=== PATIENT | female | born 1940 | race Caucasian/White ===

== ENCOUNTER 2018-02-02 12:00 | Inpatient (IN) | payer MEDICARE, BC ==
[2018-02-02] MEDS ORDERED: Magnesium Hydroxide 400 MG/5 ML Susp 30 ML Cup PO PRN (15:55)
[2018-02-02] MEDS ORDERED: Calcium Carbonate 500 MG Tab.Chew PO PRN (15:55)
--- NOTE | 2018-02-02 16:07 | PCM.HP ---
H&P History of Present Illness - General Date of Service: 02/02/18 Admit Problem/Dx: Admission Diagnosis/Problem Admission Diagnosis/Problem Arthroscopy of knee joint Source of Information: Patient, Family, Old Records History Limitations: Reports: No Limitations - History of Present Illness Initial Comments - Free Text/Narative: Patient comes today as a assisted admission for PT/OT therapy status post Left Knee replacement. Patient denies pain at this time. Currently has ice machine on Left knee. Symptom Onset Date: 01/29/18 Location: Reports: Lower Extremity, Left Quality: Reports: Ache (with movement) Severity: Mild Improves with: Reports: Cold Therapy, Immobilization Worsens with: Reports: Movement - Related Data Allergies/Adverse Reactions: Allergies Allergy/AdvReac Type Severity Reaction Status Date / Time penicillin Allergy Other Verified 07/25/15 15:42 Home Medications: Home Meds Gabapentin 600 mg PO BID 07/25/15 [History] Gemfibrozil 600 mg PO BIDAC 07/25/15 [History] Lisinopril [Prinivil] 5 mg PO DAILY 07/25/15 [History] Simvastatin 40 mg PO BEDTIME 07/25/15 [History] Acetaminophen [Tylenol Extra Strength] 1,000 mg PO Q6H PRN 02/02/18 [History] Aspirin [Ecotrin] 325 mg PO BID 02/02/18 [History] Hydrocodone/Acetaminophen [Hydrocodon-Acetaminophen 5-325] 1 each PO Q4HR PRN [History] Levofloxacin 500 mg PO [id number] 02/02/18 [History] Pantoprazole Sodium 40 mg PO [id number] 02/02/18 [History] Past Medical History HEENT History: Reports: Cataract Cardiovascular History: Reports: High Cholesterol, Hypertension Gastrointestinal History: Reports: GI Bleed 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 Musculoskeletal History: Reports: Arthritis, Back Pain, Chronic, Neck Pain, Chronic, Osteoporosis Hematologic History: Reports: Blood Transfusion(s) Other Immunologic History: shingles - Infectious Disease History Infectious Disease History: Reports: Shingles - Past Surgical History HEENT Surgical History: Reports: Cataract Surgery GI Surgical History: Reports: Appendectomy, Colonoscopy Female Surgical History: Reports: Breast Biopsy Musculoskeletal Surgical History: Reports: Arthroscopic Knee, Hip Replacement, Joint Replacement, Knee Replacement, Shoulder Replacement, Shoulder Surgery Social & Family History - Family History HEENT: Reports: Cataract Cardiac: Reports: Hypertension, [place] Respiratory: Reports: Asthma GI: Reports: Bowel Obstruction Musculoskeletal: Reports: Arthritis, Back pain, Chronic, Gout, Osteoarthritis, Osteoporosis Neurological: Reports: TIA Oncologic: Reports: Breast, Ovarian - Tobacco Use Smoking Status *Q: Never Smoker - Living Situation & Occupation Living situation: Reports: Occupation: Retired H&P Review of Systems - Review of Systems: Review Of Systems: See Below General: Reports: No Symptoms HEENT: Reports: No Symptoms Pulmonary: Reports: No Symptoms Cardiovascular: Reports: No Symptoms Gastrointestinal: Reports: No Symptoms Genitourinary: Reports: No Symptoms Musculoskeletal: Reports: Leg Pain (left knee pain with movement; currently denies pain) Skin: Reports: Other (left knee incision) Psychiatric: Reports: No Symptoms Neurological: Reports: No Symptoms Exam - Exam Exam: See Below - Exam General: Alert, Oriented, 4 HEENT: PERRLA, Hearing Intact, Mucosa Moist & [place], Nares Patent, Normal Nasal Septum, Posterior Pharynx Clear, Conjunctiva Clear, EOMI, EACs Clear, TMs Clear Neck: Supple, Trachea Midline, 2 Lungs: Clear to Auscultation, Normal Respiratory Effort Cardiovascular: Regular Rate, Regular Rhythm GI/Abdominal Exam: Normal Bowel Sounds, Soft, Non-Tender, No Organomegaly, No Distention, No Abnormal Bruit, No Mass, Pelvis Stable (Female) Exam: Deferred Rectal (Female) Exam: Deferred Back Exam: Normal Inspection Extremities: Leg Pain (left knee pain with movement; currently denies pain), Limited Range of Motion (left knee ) Skin: Incision (left knee- currently covered with ice machine) Neurological: Cranial Nerves Intact Neuro Extensive - Mental Status: Alert, Oriented x3, Normal Mood/Affect, Normal Cognition, Memory Intact Psychiatric: Alert, Normal Affect, Normal Mood - Problem List (1) Status post total left knee replacement SNOMED Code(s): 4402279805025 ICD Code: Z96.652 - PRESENCE OF LEFT ARTIFICIAL KNEE JOINT Status: Acute Current Visit: Yes Problem Details: Surgery was on 01-29-18. Uneventful Surgery. Patient here for PT/OT therapy. Problem List Initiated/Reviewed/Updated: Yes Orders Last 24hrs: Active Orders 24 hr Category Date Time Status Patient Status [ADT] Routine ADT 02/02/18 15:55 Ordered Ambulate [RC] ASDIRECTED Care 02/02/18 15:55 Ordered Communication Order [RC] ASDIRECTED Care 02/02/18 16:00 Ordered Communication, Vaccine [RC] PER UNIT ROUTINE Care 02/02/18 15:59 Ordered Cooling Measures [Cooling Warming Measures] [RC] Care 02/02/18 15:59 Ordered ASDIRECTED Height and Weight [RC] UPON Care 02/02/18 15:55 Ordered Up With Assistance [RC] ASDIRECTED Care 02/02/18 15:55 Ordered Up to Chair [RC] ASDIRECTED Care 02/02/18 15:55 Ordered Vital Signs [RC] PER UNIT ROUTINE Care 02/02/18 15:55 Ordered OT Evaluation and Treatment [CONS] Routine Cons 02/02/18 16:01 Ordered PT Evaluation and Treatment [CONS] Routine Cons 02/02/18 16:01 Ordered Regular Diet [DIET] Diet 02/02/18 Dinner Ordered Acetaminophen [Tylenol Extra Strength] Med 02/02/18 15:54 Ordered 1,000 mg PO Q6H PRN Acetaminophen/HYDROcodone [[place]ane 325-5 MG] Med 02/02/18 15:54 Ordered 1 each PO Q4HR PRN Aspirin [Ecotrin] Med 02/02/18 18:00 Ordered 325 mg PO BID Calcium Carbonate [Tums] Med 02/02/18 15:55 Ordered 500 mg PO Q4H PRN Gabapentin [Neurontin] Med 02/02/18 18:00 Ordered 600 mg PO BID Gemfibrozil [Lopid] Med 02/02/18 17:30 Ordered 600 mg PO BIDAC Levofloxacin [Levaquin] Med 02/02/18 16:00 Ordered 500 mg PO [id number] Lisinopril [Prinivil] Med 02/03/18 08:00 Ordered 5 mg PO DAILY Magnesium Hydroxide [Milk of Magnesia] Med 02/02/18 15:55 Ordered 30 ml PO BID PRN Pantoprazole [ProTONIX] Med 02/02/18 16:00 Ordered 40 mg PO [id number] Simvastatin [Simvastatin] Med 02/02/18 20:00 Ordered 40 mg PO BEDTIME GM Immunization Reflex [OM.PC] Click To Edit Oth 02/02/18 15:55 Ordered Resuscitation Status Routine Resus Stat 02/02/18 15:55 Ordered Medication Orders Acetaminophen (Tylenol Extra Strength) 1,000 mg PO Q6H PRN PRN Reason: Pain Hydrocodone Bitart/Acetaminophen ([place]ane 325-5 Mg) tab PO Q4HR PRN PRN Reason: Pain Aspirin (Ecotrin) 325 mg PO BID RUSS Calcium Carbonate/Glycine (Tums) 500 mg PO Q4H PRN PRN Reason: Dyspepsia Gabapentin (Neurontin) 600 mg PO BID RUSS Gemfibrozil (Lopid) 600 mg PO BIDAC RUSS Levofloxacin (Levaquin) 500 mg PO [id number] RUSS Lisinopril (Prinivil) 5 mg PO DAILY RUSS Magnesium Hydroxide (Milk Of Magnesia) 30 ml PO BID PRN PRN Reason: Constipation Non-Formulary Medication (Simvastatin [Simvastatin]) 40 mg PO BEDTIME RUSS Pantoprazole Sodium (Protonix) 40 mg PO [id number] RUSS
[2018-02-02] MEDS: Acetaminophen/HYDROcodone 325-5 MG Tab PO PRN ×2 (17:30→23:37)
[2018-02-02] MEDS: Aspirin 325 MG Tab.EC PO SCH (17:32)
[2018-02-02] MEDS: Gabapentin 300 MG Cap PO SCH (17:32)
[2018-02-02] MEDS: Gemfibrozil 600 MG Tab PO SCH (17:32)
[2018-02-02] MEDS: Simvastatin 20 MG Tab PO SCH (20:06)
[2018-02-03] MEDS: Gemfibrozil 600 MG Tab PO SCH ×2 (07:50→17:19)
[2018-02-03] MEDS: Aspirin 325 MG Tab.EC PO SCH ×2 (07:50→17:19)
[2018-02-03] MEDS: Gabapentin 300 MG Cap PO SCH ×2 (07:51→17:20)
[2018-02-03] MEDS: Lisinopril 5 MG Tab PO SCH (07:51)
[2018-02-03] MEDS: Pantoprazole 40 MG Tab.CR PO SCH (07:52)
[2018-02-03] MEDS: Levofloxacin 500 MG Tab PO SCH (08:02)
[2018-02-03] MEDS: Acetaminophen/HYDROcodone 325-5 MG Tab PO PRN ×2 (08:36→13:16)
[2018-02-03] MEDS: Simvastatin 20 MG Tab PO SCH (20:02)
[2018-02-03] MEDS: Acetaminophen 500 MG Tab PO PRN (20:03)
[2018-02-04] MEDS: Acetaminophen 500 MG Tab PO PRN ×3 (02:04→22:22)
[2018-02-04] MEDS: Gemfibrozil 600 MG Tab PO SCH ×2 (08:07→17:55)
[2018-02-04] MEDS: Aspirin 325 MG Tab.EC PO SCH ×2 (08:07→17:56)
[2018-02-04] MEDS: Gabapentin 300 MG Cap PO SCH ×2 (08:08→17:56)
[2018-02-04] MEDS: Levofloxacin 500 MG Tab PO SCH (08:08)
[2018-02-04] MEDS: Pantoprazole 40 MG Tab.CR PO SCH (08:12)
[2018-02-04] MEDS: Lisinopril 5 MG Tab PO SCH (08:13)
[2018-02-04] MEDS: Acetaminophen/HYDROcodone 325-5 MG Tab PO PRN ×2 (08:29→14:30)
[2018-02-04] MEDS: Simvastatin 20 MG Tab PO SCH (19:32)
[2018-02-05] MEDS: Gemfibrozil 600 MG Tab PO SCH ×2 (07:32→17:33)
[2018-02-05] MEDS: Aspirin 325 MG Tab.EC PO SCH ×2 (07:33→17:33)
[2018-02-05] MEDS: Levofloxacin 500 MG Tab PO SCH (07:33)
[2018-02-05] MEDS: Gabapentin 300 MG Cap PO SCH ×2 (07:34→17:33)
[2018-02-05] MEDS: Pantoprazole 40 MG Tab.CR PO SCH (07:34)
[2018-02-05] MEDS: Lisinopril 5 MG Tab PO SCH (07:38)
[2018-02-05] MEDS: Acetaminophen/HYDROcodone 325-5 MG Tab PO PRN (07:39)
[2018-02-05] MEDS: Simvastatin 20 MG Tab PO SCH (19:53)
[2018-02-06] MEDS: Gemfibrozil 600 MG Tab PO SCH ×2 (08:13→17:43)
[2018-02-06] MEDS: Gabapentin 300 MG Cap PO SCH ×2 (08:14→17:44)
[2018-02-06] MEDS: Aspirin 325 MG Tab.EC PO SCH ×2 (08:14→17:43)
[2018-02-06] MEDS: Levofloxacin 500 MG Tab PO SCH (08:14)
[2018-02-06] MEDS: Acetaminophen 500 MG Tab PO PRN ×2 (08:15→19:10)
[2018-02-06] MEDS: Pantoprazole 40 MG Tab.CR PO SCH (08:15)
[2018-02-06] MEDS: Lisinopril 5 MG Tab PO SCH (08:19)
[2018-02-06] MEDS: Simvastatin 20 MG Tab PO SCH (19:09)
[2018-02-07] MEDS: Lisinopril 5 MG Tab PO SCH (08:34)
[2018-02-07] MEDS: Gemfibrozil 600 MG Tab PO SCH ×2 (08:35→17:30)
[2018-02-07] MEDS: Pantoprazole 40 MG Tab.CR PO SCH (08:36)
[2018-02-07] MEDS: Aspirin 325 MG Tab.EC PO SCH ×2 (08:36→17:31)
[2018-02-07] MEDS: Gabapentin 300 MG Cap PO SCH ×2 (08:36→17:31)
[2018-02-07] MEDS: Acetaminophen 500 MG Tab PO PRN ×2 (09:12→22:17)
[2018-02-07] MEDS: Levofloxacin 500 MG Tab PO SCH (09:12)
[2018-02-07] MEDS: Simvastatin 20 MG Tab PO SCH (19:46)
[2018-02-08] MEDS: Aspirin 325 MG Tab.EC PO SCH ×2 (07:51→17:12)
[2018-02-08] MEDS: Gemfibrozil 600 MG Tab PO SCH ×2 (07:51→17:12)
[2018-02-08] MEDS: Gabapentin 300 MG Cap PO SCH ×2 (07:51→17:12)
[2018-02-08] MEDS: Pantoprazole 40 MG Tab.CR PO SCH (08:01)
[2018-02-08] MEDS: Lisinopril 5 MG Tab PO SCH (08:01)
[2018-02-08] MEDS: Acetaminophen/HYDROcodone 325-5 MG Tab PO PRN ×3 (08:02→19:30)
[2018-02-08] MEDS: Acetaminophen 500 MG Tab PO PRN (17:14)
[2018-02-08] MEDS: Simvastatin 20 MG Tab PO SCH (19:29)
[2018-02-09] MEDS: Pantoprazole 40 MG Tab.CR PO SCH (08:01)
[2018-02-09] MEDS: Aspirin 325 MG Tab.EC PO SCH ×2 (08:01→17:11)
[2018-02-09] MEDS: Gabapentin 300 MG Cap PO SCH ×2 (08:02→17:12)
[2018-02-09] MEDS: Gemfibrozil 600 MG Tab PO SCH ×2 (08:03→17:12)
[2018-02-09] MEDS: Lisinopril 5 MG Tab PO SCH (08:05)
[2018-02-09] MEDS: Acetaminophen/HYDROcodone 325-5 MG Tab PO PRN (13:01)
[2018-02-09] MEDS: Simvastatin 20 MG Tab PO SCH (19:57)
[2018-02-09] MEDS: Acetaminophen 500 MG Tab PO PRN (19:58)
[2018-02-10] MEDS: Acetaminophen 500 MG Tab PO PRN (03:31)
[2018-02-10] MEDS: Lisinopril 5 MG Tab PO SCH (07:47)
[2018-02-10] MEDS: Pantoprazole 40 MG Tab.CR PO SCH (07:48)
[2018-02-10] MEDS: Gemfibrozil 600 MG Tab PO SCH (07:48)
[2018-02-10] MEDS: Aspirin 325 MG Tab.EC PO SCH (07:49)
[2018-02-10] MEDS: Gabapentin 300 MG Cap PO SCH (07:49)
[2018-02-10] MEDS: Acetaminophen/HYDROcodone 325-5 MG Tab PO PRN (10:27)
--- NOTE | 2018-02-10 11:24 | PCM.DCSUM1 ---
Discharge Summary - Hospital Course Free Text/Narrative:: Patient is a 77-year-old female who was admitted to swing bed status post left knee replacement she is progressing extremely quickly and has reached the goals of swing bed physical therapy feels that she could go home and will continue with physical therapy as an outpatient at [facility] in [place]. - Discharge Data Discharge Date: 02/10/18 Discharge Disposition: Home, Self-Care 01 Condition: Good - Discharge Diagnosis/Problem(s) (1) Status post total left knee replacement SNOMED Code(s): 2295246493655 ICD Code: Z96.652 - PRESENCE OF LEFT ARTIFICIAL KNEE JOINT Status: Acute Current Visit: Yes Problem Details: Patient has progressed well. Will continue PT therapy as an outpatient. - Patient Summary/Data Consults: Consultations 02/02/18 16:01 OT Evaluation and Treatment [CONS] Routine PT Evaluation and Treatment [CONS] Routine - Patient Instructions Diet: Usual Diet as Tolerated Activity: As Tolerated (Per PT instructions) Driving: Do Not Drive Showering/Bathing: May Shower Wound/Incision Care: Keep Operative Site/Wound Site Clean and Dry Notify Provider of: Fever, Increased Pain, Swelling and Redness, Drainage Other/Special Instructions: Physical Therapy at [facility] in [place] as ordered for Strengthening/ ADLs for status pots left knee replacement. Patient to wear DMITRI hose during the day. - Discharge Plan Prescriptions/Med Rec: Acetaminophen/HYDROcodone [[place] 325-5 MG] 1 tab PO Q4HR PRN #40 tablet PRN Reason: Pain Home Medications: Home Meds Gabapentin 600 mg PO BID 07/25/15 [History] Gemfibrozil 600 mg PO BIDAC 07/25/15 [History] Lisinopril [Prinivil] 5 mg PO DAILY 07/25/15 [History] Simvastatin 40 mg PO BEDTIME 07/25/15 [History] Acetaminophen [Tylenol Extra Strength] 1,000 mg PO Q6H PRN 02/02/18 [History] Aspirin [Ecotrin] 325 mg PO BID 02/02/18 [History] Hydrocodone/Acetaminophen [Hydrocodon-Acetaminophen 5-325] 1 each PO Q4HR PRN [History] Pantoprazole Sodium 40 mg PO [id number] 02/02/18 [History] Acetaminophen/HYDROcodone [[place] 325-5 MG] 1 tab PO Q4HR PRN #40 tablet [Rx] Referrals: Ortho, Follow Up [Other] (Attend Ortho follow up appointment with surgeon as scheduled. ) Clinic, [facility] [Other] (Call with any questions or concerns. ) - Discharge Summary/Plan Comment DC Time >30 min.: No - General Info Date of Service: 02/10/18 Functional Status: Reports: Pain Controlled, Tolerating Diet, Ambulating - Review of Systems General: Reports: No Symptoms HEENT: Reports: No Symptoms Pulmonary: Reports: No Symptoms Cardiovascular: Reports: No Symptoms Gastrointestinal: Reports: No Symptoms Genitourinary: Reports: No Symptoms Musculoskeletal: Reports: No Symptoms Skin: Reports: No Symptoms Neurological: Reports: No Symptoms Psychiatric: Reports: No Symptoms - Patient Data Vitals - Most Recent: Last Vital Signs Temp 98.1 F 02/09/18 08:00 Pulse 84 02/09/18 08:00 Resp 18 02/09/18 08:00 BP 144/66 H 02/09/18 08:05 Pulse Ox 94 L 02/09/18 08:00 Weight - Most Recent: 323 lb 6.69 oz Med Orders - Current: Current Medications Acetaminophen (Tylenol Extra Strength) 1,000 mg PO Q6H PRN PRN Reason: Pain Last Admin: 02/10/18 03:31 Dose: 1,000 mg Hydrocodone Bitart/Acetaminophen ([place] 325-5 Mg) 1 tab PO Q4HR PRN PRN Reason: Pain Last Admin: 02/10/18 10:27 Dose: 1 tab Aspirin (Ecotrin) 325 mg PO BID [facility] Last Admin: 02/10/18 07:49 Dose: 325 mg Calcium Carbonate/Glycine (Tums) 500 mg PO Q4H PRN PRN Reason: Dyspepsia Gabapentin (Neurontin) 600 mg PO BID [facility] Last Admin: 02/10/18 07:49 Dose: 600 mg Gemfibrozil (Lopid) 600 mg PO BIDAC [facility] Last Admin: 02/10/18 07:48 Dose: 600 mg Lisinopril (Prinivil) 5 mg PO DAILY [facility] Last Admin: 02/10/18 07:47 Dose: 5 mg Magnesium Hydroxide (Milk Of Magnesia) 30 ml PO BID PRN PRN Reason: Constipation Pantoprazole Sodium (Protonix) 40 mg PO DAILY [facility] Last Admin: 02/10/18 07:48 Dose: 40 mg Simvastatin (Zocor) 40 mg PO BEDTIME [facility] Last Admin: 02/09/18 19:57 Dose: 40 mg Discontinued Medications Levofloxacin (Levaquin) 500 mg PO DAILY [facility] Stop: 02/07/18 08:01 Last Admin: 02/07/18 09:12 Dose: 500 mg - Exam General: Reports: Alert, Oriented HEENT: Reports: Pupils Equal, Pupils Reactive, EOMI, Mucous Membr. Moist/[place] Neck: Reports: Supple Lungs: Reports: Clear to Auscultation, Normal Respiratory Effort Cardiovascular: Reports: Regular Rate, Regular Rhythm GI/Abdominal Exam: Normal Bowel Sounds, Soft, Non-Tender, No Organomegaly, No Distention, No Abnormal Bruit, No Mass, Pelvis Stable (Female) Exam: Deferred Rectal (Female) Exam: Deferred Back Exam: Reports: Normal Inspection, Full Range of Motion Extremities: Leg Pain (Left leg pain intermittently; Incision open to air- Dry and intact ) Skin: Reports: Warm, Dry, Intact Wound/Incisions: Reports: Healing Well Neurological: Reports: No New Focal Deficit Psy/Mental Status: Reports: Alert, Normal Affect, Normal Mood
[2018-02-10 11:56] VITALS: BP 125/60
== END 2018-02-10 13:15 | disposition home or self-care (01) | DRG 561 ==
LOC: LL.SWG 14:10
PROVIDERS: ADMIT Family Medicine; ATTEND Family Medicine
DX: Z47.1 Aftercare following joint replacement surgery (principal); Z96.652 Presence of left artificial knee joint; M79.605 Pain in left leg; E78.00 Pure hypercholesterolemia, unspecified; I10 Essential (primary) hypertension; M19.90 Unspecified osteoarthritis, unspecified site; G89.29 Other chronic pain; M54.9 Dorsalgia, unspecified; M54.2 Cervicalgia; M81.0 Age-related osteoporosis without current pathological fracture; Z79.82 Long term (current) use of aspirin; Z79.899 Other long term (current) drug therapy; Z88.0 Allergy status to penicillin; Z96.619 Presence of unspecified artificial shoulder joint; Z96.649 Presence of unspecified artificial hip joint
CPT/HCPCS: 97110-GP; 97116-GP; 97161-GP; 97165-GO; 97530-GP; A9270-GY

== ENCOUNTER 2018-03-19 14:37 | Inpatient (IN) | payer MEDICARE, BC ==
[2018-03-19] MEDS: oxyCODONE 5 MG Tab PO PRN (16:27)
--- NOTE | 2018-03-19 17:10 | PCM.HP ---
H&P History of Present Illness - General Date of Service: 03/19/18 Admit Problem/Dx: Patient admitted to Swing Bed for assistance with ADLs as well as PT/Rehab assistance s/p T11 laminectomy for thoracic stenosis with spinal cord compression and myelopathy. Source of Information: Patient, Other (hospital records from recent admission) History Limitations: Reports: No Limitations - History of Present Illness Initial Comments - Free Text/Narative: See above - Related Data Allergies/Adverse Reactions: Allergies Allergy/AdvReac Type Severity Reaction Status Date / Time penicillin Allergy Other Verified 07/25/15 15:42 Home Medications: Home Meds Gabapentin 300 mg PO BID 07/25/15 [History] Gemfibrozil 600 mg PO BIDAC 07/25/15 [History] Lisinopril [Prinivil] 5 mg PO DAILY 07/25/15 [History] Simvastatin 40 mg PO BEDTIME 07/25/15 [History] Aspirin [Ecotrin] 325 mg PO DAILY 02/02/18 [History] Multivit-Min/FA/Lycopene/Lut [Centrum Silver Tablet] 1 tab PO DAILY 03/19/18 [ History] oxyCODONE HCl [Roxicodone] 5 mg PO Q4HR PRN 03/19/18 [History] Past Medical History HEENT History: Reports: Cataract Cardiovascular History: Reports: High Cholesterol, Hypertension Gastrointestinal History: Reports: GI 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 Musculoskeletal History: Reports: Arthritis, Back Pain, Chronic, Neck Pain, Chronic, Osteoporosis Hematologic History: Reports: Blood Transfusion(s) Other Immunologic History: shingles - Infectious Disease History Infectious Disease History: Reports: Chicken Pox, Measles, Mumps, Shingles - Past Surgical History HEENT Surgical History: Reports: Cataract Surgery GI Surgical History: Reports: Appendectomy, Colonoscopy Female Surgical History: Reports: Breast Biopsy Neurological Surgical History: Reports: C-Spine, Laminectomy (T11), Spinal Fusion (L1 through sacrum) Musculoskeletal Surgical History: Reports: Arthroscopic Knee, Hip Replacement, Joint Replacement, Knee Replacement, Shoulder Replacement, Shoulder Surgery Social & Family History - Family History HEENT: Reports: Cataract Cardiac: Reports: Hypertension, [place] Respiratory: Reports: Asthma GI: Reports: Bowel Obstruction Musculoskeletal: Reports: Arthritis, Back pain, Chronic, Gout, Osteoarthritis, Osteoporosis Neurological: Reports: TIA Oncologic: Reports: Breast, Ovarian - Tobacco Use Smoking Status *Q: Former Smoker Years of Tobacco use: 2 Packs/Tins Daily: 1 Used Tobacco, but Quit: Yes Month/Year Tobacco Last Used: 12/1963 Second Hand Smoke Exposure: No - Caffeine Use Caffeine Use: Reports: Coffee, Soda, Tea - Recreational Drug Use Recreational Drug Use: No - Living Situation & Occupation Living situation: Reports: Occupation: Retired H&P Review of Systems - Review of Systems: Review Of Systems: See Below General: Reports: Decreased Appetite (since surgery). Denies: Fever, Chills, Night Sweats, Diaphoresis HEENT: Reports: No Symptoms Pulmonary: Reports: No Symptoms. Denies: Shortness of Breath, Cough Cardiovascular: Reports: No Symptoms. Denies: Chest Pain Gastrointestinal: Reports: No Symptoms Genitourinary: Reports: No Symptoms Musculoskeletal: Reports: Other (has chronic pain from arthritis/previous surgeries. Discomfort in lower thoracic area s/p recent surgery.) Skin: Reports: Wound (healing incision from laminectomy) Psychiatric: Reports: No Symptoms Neurological: Reports: Weakness (mild, bilateral legs, improving since surgery) , Other (did have numbness bilaterally below waistline develop prior to recent surgery. It is still present but improving. ) Hematologic/Lymphatic: Denies: Easy Bleeding Exam - Exam Exam: See Below - Vital Signs Vital Signs: Last Vital Signs Temp 36.6 C 03/19/18 16:06 Pulse 91 03/19/18 16:06 Resp 20 03/19/18 16:06 BP 111/60 03/19/18 16:06 Pulse Ox 98 03/19/18 16:06 Weight: 63.049 kg - Exam General: Alert, Oriented, Cooperative HEENT: Conjunctiva Clear, EACs Clear, EOMI, Hearing Intact, Mucosa Moist & [place] , Nares Patent, Pupils Equal, Pupils Reactive Neck: Supple, Trachea Midline Lungs: Clear to Auscultation, Normal Respiratory Effort Cardiovascular: Regular Rate, Regular Rhythm GI/Abdominal Exam: Normal Bowel Sounds, Soft, Non-Tender, No Distention (Female) Exam: Deferred Rectal (Female) Exam: Deferred Back Exam: Other (Surgical dressing applied over laminectomy incision line. Left in place. No erythema or other changes noted around bandage. ). No: CVA Tenderness (L), CVA Tenderness (R) Extremities: Non-Tender, No Pedal Edema, Normal Capillary Refill, Other (ROM not tested due to recent surgery. Equal strength bilaterally. ) Peripheral Pulses: 2+: Radial (L), Radial (R), Dorsalis Pedis (L), Dorsalis Pedis (R) Skin: Warm, Dry Neurological: Cranial Nerves Intact, Reflexes Equal Bilateral, Strength Equal Bilateral Neuro Extensive - Mental Status: Alert, Oriented x3, Normal Mood/Affect, Normal Cognition, Memory Intact Neuro Extensive - Motor, Sensory, Reflexes: Other (No gross motor/sensory deficits noted. Touch/sensation intact lower extremities but patient says that subjectively things feel not quite 100% in legs (glove/stocking distribution)) Psychiatric: Alert, Normal Affect, Normal Mood - Problem List (1) S/P laminectomy SNOMED Code(s): 978952613, 223372633, 544692803 ICD Code: Z98.890 - OTHER SPECIFIED POSTPROCEDURAL STATES Status: Acute Priority: High Current Visit: Yes Onset Date: ~03/12/18 Problem Details: Patient here for Swing Bed admission due to recent laminectomy in order to receive PT/OT and assistance with ADLs. (2) Degenerative joint disease involving multiple joints SNOMED Code(s): 845234957 ICD Code: M15.9 - POLYOSTEOARTHRITIS, UNSPECIFIED Status: Chronic Priority: Low Current Visit: Yes (3) Hyperlipemia SNOMED Code(s): 78986958 ICD Code: E78.5 - HYPERLIPIDEMIA, UNSPECIFIED Status: Chronic Priority: Low Current Visit: Yes Problem Details: stable by history Qualifiers: Hyperlipidemia type: unspecified Qualified Code(s): E78.5 - Hyperlipidemia , unspecified (4) Hypertension SNOMED Code(s): 81714191 ICD Code: I10 - ESSENTIAL (PRIMARY) HYPERTENSION Status: Chronic Priority : Low Current Visit: Yes Problem Details: stable by history Qualifiers: Hypertension type: unspecified Qualified Code(s): I10 - Essential (primary ) hypertension (5) Spondylosis, thoracic, with myelopathy SNOMED Code(s): 51023253 ICD Code: M47.14 - OTHER SPONDYLOSIS WITH MYELOPATHY, THORACIC REGION Status: Chronic Priority: Medium Current Visit: Yes Problem Details: recent T11 laminectomy (6) Spinal stenosis, thoracic region SNOMED Code(s): 73945619 ICD Code: M48.04 - SPINAL STENOSIS, THORACIC REGION Status: Chronic Priority: Medium Current Visit: Yes Problem Details: recent T11 laminectomy Problem List Initiated/Reviewed/Updated: Yes Orders Last 24hrs: Active Orders 24 hr Category Date Time Status Aspirin [Ecotrin] Med 03/20/18 08:00 Active 325 mg PO DAILY Cholecalciferol (Vitamin D3) [Vitamin D3] Med 03/20/18 08:00 Active 2,000 units PO DAILY Gabapentin [Neurontin] Med 03/19/18 18:00 Pending 600 mg PO BID Gemfibrozil [Lopid] Med 03/19/18 17:30 Active 600 mg PO BIDAC Lisinopril [Prinivil] Med 03/20/18 08:00 Active 5 mg PO DAILY Magnesium Oxide Med 03/20/18 08:00 Active 800 mg PO DAILY Multivitamins [Tab-A-Emmett] Med 03/20/18 08:00 Active 1 tab PO DAILY Simvastatin [Zocor] Med 03/19/18 20:00 Active 40 mg PO BEDTIME Ubidecarenone [Coenzyme Q10] Med 03/20/18 08:00 Active 100 mg PO DAILY oxyCODONE Med 03/19/18 16:00 Active 5 mg PO Q4H PRN Medication Orders Aspirin (Ecotrin) 325 mg PO DAILY RUSS Cholecalciferol (Vitamin D3) 2,000 units PO DAILY RUSS Coenzyme Q10 (Coenzyme Q10) 100 mg PO DAILY RUSS Gabapentin (Neurontin) 600 mg PO BID RUSS Gemfibrozil (Lopid) 600 mg PO BIDAC RUSS Lisinopril (Prinivil) 5 mg PO DAILY [facility] Magnesium Oxide (Magnesium Oxide) 800 mg PO DAILY [facility] Multivitamins/Minerals/Vitamin C (Tab-A-Emmett) 1 tab PO DAILY RUSS Oxycodone HCl (Oxycodone) 5 mg PO Q4H PRN PRN Reason: Pain (moderate 4-6) Last Admin: 03/19/18 16:27 Dose: 5 mg Simvastatin (Zocor) 40 mg PO BEDTIME RUSS Assessment/Plan Comment:: as above
[2018-03-19] MEDS ORDERED: Bisacodyl 10 MG Supp RECTAL PRN (17:25)
[2018-03-19] MEDS ORDERED: Magnesium Hydroxide 400 MG/5 ML Susp 30 ML Cup PO PRN (17:25)
[2018-03-19] MEDS ORDERED: Calcium Carbonate 500 MG Tab.Chew PO PRN (17:25)
[2018-03-19] MEDS: Gemfibrozil 600 MG Tab PO SCH (17:33)
[2018-03-19] MEDS: Gabapentin 300 MG Cap PO SCH (17:45)
[2018-03-19] MEDS ORDERED: Gabapentin 300 MG Cap PO SCH (18:00)
[2018-03-19] MEDS: Simvastatin 20 MG Tab PO SCH (19:55)
[2018-03-19] MEDS: Acetaminophen 325 MG Tab PO PRN (19:55)
[2018-03-20] MEDS: oxyCODONE 5 MG Tab PO PRN (00:29)
[2018-03-20] MEDS: Gemfibrozil 600 MG Tab PO SCH ×2 (07:54→17:55)
[2018-03-20] MEDS: Aspirin 325 MG Tab.EC PO SCH (07:56)
[2018-03-20] MEDS: Multivitamin Tab PO SCH (07:57)
[2018-03-20] MEDS: Lisinopril 5 MG Tab PO SCH (07:57)
[2018-03-20] MEDS: Cholecalciferol (Vitamin D3) 1,000 Unit Tab PO SCH (07:58)
[2018-03-20] MEDS: Gabapentin 300 MG Cap PO SCH ×2 (08:00→17:55)
[2018-03-20] MEDS ORDERED: Magnesium Oxide 400 MG Tab PO SCH (08:00)
[2018-03-20] MEDS: Magnesium Oxide 400 MG Tab PO SCH (09:53)
[2018-03-20] MEDS: Acetaminophen 325 MG Tab PO PRN ×3 (10:22→21:13)
[2018-03-20] MEDS: Simvastatin 20 MG Tab PO SCH (19:07)
[2018-03-21] MEDS: Acetaminophen 325 MG Tab PO PRN ×3 (02:36→14:24)
[2018-03-21] MEDS: Gemfibrozil 600 MG Tab PO SCH ×2 (08:02→17:42)
[2018-03-21] MEDS: Aspirin 325 MG Tab.EC PO SCH (08:03)
[2018-03-21] MEDS: Gabapentin 300 MG Cap PO SCH ×2 (08:04→17:42)
[2018-03-21] MEDS: Lisinopril 5 MG Tab PO SCH (08:04)
[2018-03-21] MEDS: Cholecalciferol (Vitamin D3) 1,000 Unit Tab PO SCH (08:05)
[2018-03-21] MEDS: Multivitamin Tab PO SCH (08:05)
[2018-03-21] MEDS: Magnesium Oxide 400 MG Tab PO SCH (10:10)
[2018-03-21] MEDS: Simvastatin 20 MG Tab PO SCH (19:09)
[2018-03-21] MEDS: Melatonin 3 MG Tab PO PRN (21:28)
[2018-03-21] MEDS: oxyCODONE 5 MG Tab PO PRN (21:30)
[2018-03-22] MEDS: Gemfibrozil 600 MG Tab PO SCH ×2 (07:45→17:23)
[2018-03-22] MEDS: Aspirin 325 MG Tab.EC PO SCH (07:46)
[2018-03-22] MEDS: Gabapentin 300 MG Cap PO SCH ×2 (07:46→17:24)
[2018-03-22] MEDS: Lisinopril 5 MG Tab PO SCH (07:47)
[2018-03-22] MEDS: Multivitamin Tab PO SCH (07:47)
[2018-03-22] MEDS: Cholecalciferol (Vitamin D3) 1,000 Unit Tab PO SCH (07:48)
[2018-03-22] MEDS: Magnesium Oxide 400 MG Tab PO SCH (09:54)
[2018-03-22] MEDS ORDERED: Bisacodyl 5 MG Tab PO PRN (17:43)
[2018-03-22] MEDS: Simvastatin 20 MG Tab PO SCH (19:09)
[2018-03-22] MEDS: Melatonin 3 MG Tab PO PRN (22:48)
[2018-03-22] MEDS: Acetaminophen 325 MG Tab PO PRN (22:48)
[2018-03-23] MEDS: Gemfibrozil 600 MG Tab PO SCH ×2 (08:16→17:23)
[2018-03-23] MEDS: Gabapentin 300 MG Cap PO SCH ×2 (08:17→17:23)
[2018-03-23] MEDS: Aspirin 325 MG Tab.EC PO SCH (08:17)
[2018-03-23] MEDS: Lisinopril 5 MG Tab PO SCH (08:17)
[2018-03-23] MEDS: Multivitamin Tab PO SCH (08:18)
[2018-03-23] MEDS: Cholecalciferol (Vitamin D3) 1,000 Unit Tab PO SCH (08:18)
[2018-03-23] MEDS: Magnesium Oxide 400 MG Tab PO SCH (11:03)
[2018-03-23] MEDS: Simvastatin 20 MG Tab PO SCH (21:24)
[2018-03-23] MEDS: Acetaminophen 325 MG Tab PO PRN (21:26)
[2018-03-23] MEDS: Melatonin 3 MG Tab PO PRN (22:32)
[2018-03-24] MEDS: Gemfibrozil 600 MG Tab PO SCH ×2 (07:56→17:21)
[2018-03-24] MEDS: Gabapentin 300 MG Cap PO SCH ×2 (07:57→17:21)
[2018-03-24] MEDS: Lisinopril 5 MG Tab PO SCH (07:57)
[2018-03-24] MEDS: Aspirin 325 MG Tab.EC PO SCH (07:57)
[2018-03-24] MEDS: Multivitamin Tab PO SCH (07:58)
[2018-03-24] MEDS: Cholecalciferol (Vitamin D3) 1,000 Unit Tab PO SCH (07:58)
[2018-03-24] MEDS: Magnesium Oxide 400 MG Tab PO SCH (11:16)
[2018-03-24] MEDS: Simvastatin 20 MG Tab PO SCH (19:35)
[2018-03-24] MEDS: Melatonin 3 MG Tab PO PRN (21:58)
[2018-03-24] MEDS: Acetaminophen 325 MG Tab PO PRN (21:58)
[2018-03-25] MEDS: Gabapentin 300 MG Cap PO SCH (08:01)
[2018-03-25] MEDS: Aspirin 325 MG Tab.EC PO SCH (08:01)
[2018-03-25] MEDS: Gemfibrozil 600 MG Tab PO SCH (08:01)
[2018-03-25] MEDS: Lisinopril 5 MG Tab PO SCH (08:02)
[2018-03-25] MEDS: Multivitamin Tab PO SCH (08:02)
[2018-03-25] MEDS: Cholecalciferol (Vitamin D3) 1,000 Unit Tab PO SCH (08:03)
[2018-03-25 08:25] VITALS: BP 114/59
[2018-03-25] MEDS: Magnesium Oxide 400 MG Tab PO SCH (09:45)
--- NOTE | 2018-03-25 16:21 | PCM.DCSUM1 ---
Discharge Summary - Hospital Course Free Text/Narrative:: Patient is being discharge to home s/p laminectomy.She will be receiving outpatient PT through [facility], appointment has been scheduled for next week. She is to continue to monitor pain. Patient has had minimal pain while inpatient. She has not used oxycodone since first inpatient night. She uses Tylenol at bedtime for discomfort. She has been instructed to continue to use Tylenol at home for discomfort. Patient has no concerns or questions regarding her care. She will be using a walker or cane while ambulating at home. She is aware she needs to use an assistive device while using stairs, as well as someone to support her if hand rail not avaible. Patient has follow up appointment with Dr. Nails on April 21. - Discharge Data Discharge Date: 03/25/18 Discharge Disposition: Home, Self-Care 01 Condition: Good - Discharge Diagnosis/Problem(s) (1) S/P laminectomy SNOMED Code(s): 450181553, [id number], [id number] ICD Code: Z98.890 - OTHER SPECIFIED POSTPROCEDURAL STATES Status: Acute Priority: High Onset Date: ~03/12/18 Problem Details: Patient discharging today with outpatient PT. Home with . - Patient Summary/Data Consults: Consultations 03/19/18 17:33 OT Evaluation and Treatment [CONS] Routine PT Evaluation and Treatment [CONS] Routine - Patient Instructions Diet: Usual Diet as Tolerated Activity: As Tolerated Driving: Do Not Drive Showering/Bathing: May Shower Wound/Incision Care: Keep Operative Site/Wound Site Clean and Dry Notify Provider of: Fever, Increased Pain, Swelling and Redness, Drainage, Nausea and/or Vomiting - Discharge Plan Home Medications: Home Meds Gabapentin 300 mg PO BID 07/25/15 [History] Gemfibrozil 600 mg PO BIDAC 07/25/15 [History] Lisinopril [Prinivil] 5 mg PO DAILY 07/25/15 [History] Simvastatin 40 mg PO BEDTIME 07/25/15 [History] Aspirin [Ecotrin] 325 mg PO DAILY 02/02/18 [History] Multivit-Min/FA/Lycopene/Lut [Centrum Silver Tablet] 1 tab PO DAILY 03/19/18 [ History] Acetaminophen [Tylenol] 650 mg PO Q4H PRN tablet 03/25/18 [Rx] Melatonin 6 mg PO BEDTIME PRN tablet 03/25/18 [Rx] Ubidecarenone [Coenzyme Q10] 100 mg PO DAILY cap 03/25/18 [Rx] Other Amb Orders: PT Evaluation and Treatment [CONS] Location: None Selected Patient Handouts: Laminectomy, Care After Referrals: Keyshawn Nails MD [Ordering Only Provider] - (April 21 at 11:15am) - Discharge Summary/Plan Comment DC Time >30 min.: No - General Info Date of Service: 03/25/18 Functional Status: Reports: Pain Controlled, Tolerating Diet, Ambulating, Urinating - Review of Systems General: Reports: No Symptoms HEENT: Reports: No Symptoms Pulmonary: Reports: No Symptoms Cardiovascular: Reports: No Symptoms Gastrointestinal: Reports: No Symptoms Genitourinary: Reports: No Symptoms Musculoskeletal: Reports: No Symptoms Skin: Reports: Other (surgical incision to back) Neurological: Reports: No Symptoms Psychiatric: Reports: No Symptoms - Patient Data Vitals - Most Recent: Last Vital Signs Temp 97.4 F 03/25/18 08:00 Pulse 77 03/25/18 08:00 Resp 20 03/25/18 08:00 BP 114/59 L 03/25/18 08:00 Pulse Ox 95 03/25/18 08:00 Weight - Most Recent: 138 lb 15.988 oz Med Orders - Current: Current Medications Discontinued Medications Acetaminophen (Tylenol) 650 mg PO Q4H PRN PRN Reason: analgesia/fever Last Admin: 03/24/18 21:58 Dose: 650 mg Aspirin (Ecotrin) 325 mg PO DAILY [facility] Last Admin: 03/25/18 08:01 Dose: 325 mg Bisacodyl (Dulcolax) 10 mg RECTAL DAILY PRN PRN Reason: Constipation Bisacodyl (Dulcolax) 5 mg PO DAILY PRN PRN Reason: Constipation Last Admin: 03/22/18 18:04 Dose: 5 mg Calcium Carbonate/Glycine (Tums) 500 mg PO Q4H PRN PRN Reason: Dyspepsia Cholecalciferol (Vitamin D3) 2,000 units PO DAILY [facility] Last Admin: 03/25/18 08:03 Dose: 2,000 units Coenzyme Q10 (Coenzyme Q10) 100 mg PO DAILY [facility] Last Admin: 03/25/18 08:01 Dose: 100 mg Gabapentin (Neurontin) 600 mg PO BID [facility] Gabapentin (Neurontin) 300 mg PO BID [facility] Last Admin: 03/25/18 08:01 Dose: 300 mg Gemfibrozil (Lopid) 600 mg PO BIDAC [facility] Last Admin: 03/25/18 08:01 Dose: 600 mg Lisinopril (Prinivil) 5 mg PO DAILY [facility] Last Admin: 03/25/18 08:02 Dose: 5 mg Magnesium Hydroxide (Milk Of Magnesia) 30 ml PO BID PRN PRN Reason: Constipation Magnesium Oxide (Magnesium Oxide) 800 mg PO DAILY [facility] Last Admin: 03/20/18 09:38 Dose: Not Given Magnesium Oxide (Magnesium Oxide) 800 mg PO DAILY@1000 [facility] Last Admin: 03/25/18 09:45 Dose: 800 mg Melatonin (Melatonin) 6 mg PO BEDTIME PRN PRN Reason: Insomnia Last Admin: 03/24/18 21:58 Dose: 6 mg Multivitamins/Minerals/Vitamin C (Tab-A-Emmett) 1 tab PO DAILY [facility] Last Admin: 03/25/18 08:02 Dose: 1 tab Oxycodone HCl (Oxycodone) 5 mg PO Q4H PRN PRN Reason: Pain (moderate 4-6) Last Admin: 03/21/18 21:30 Dose: 5 mg Simvastatin (Zocor) 40 mg PO BEDTIME [facility] Last Admin: 03/24/18 19:35 Dose: 40 mg - Exam General: Reports: Alert, Oriented, Cooperative HEENT: Reports: Pupils Equal Neck: Reports: Supple Lungs: Reports: Clear to Auscultation, Normal Respiratory Effort Cardiovascular: Reports: Regular Rate, Regular Rhythm, No Murmurs GI/Abdominal Exam: Normal Bowel Sounds, Soft, Non-Tender (Female) Exam: Deferred Rectal (Female) Exam: Deferred Back Exam: Reports: Normal Inspection Extremities: Normal Inspection, No Pedal Edema Skin: Reports: Warm, Dry Wound/Incisions: Reports: Healing Well Neurological: Reports: No New Focal Deficit Psy/Mental Status: Reports: Alert, Normal Affect, Normal Mood
== END 2018-03-25 12:12 | disposition home or self-care (01) | DRG 949 ==
LOC: LL.SWG 14:37 → UNDOADMIN 14:37 → LL.SWG 17:25
PROVIDERS: ADMIT Emergency Medicine; ATTEND Emergency Medicine
DX: Z48.89 Encounter for other specified surgical aftercare (principal); M47.14 Other spondylosis with myelopathy, thoracic region; M15.9 Polyosteoarthritis, unspecified; E78.5 Hyperlipidemia, unspecified; I10 Essential (primary) hypertension; E78.00 Pure hypercholesterolemia, unspecified; M48.04 Spinal stenosis, thoracic region; M10.9 Gout, unspecified; G89.29 Other chronic pain; M54.9 Dorsalgia, unspecified; M81.0 Age-related osteoporosis without current pathological fracture; Z98.890 Other specified postprocedural states; Z88.0 Allergy status to penicillin; Z79.899 Other long term (current) drug therapy; Z79.82 Long term (current) use of aspirin; Z79.891 Long term (current) use of opiate analgesic; I25.2 Old myocardial infarction; Z86.73 Personal history of transient ischemic attack (TIA), and cerebral infarction without residual deficits; Z87.891 Personal history of nicotine dependence; Z98.1 Arthrodesis status
CPT/HCPCS: 97110-GP; 97116-GP; 97161-GP; 97530-GP; A9270-GY

== ENCOUNTER 2019-03-05 11:19 | Inpatient (IN) | payer MEDICARE, BC ==
--- NOTE | 2019-03-05 15:32 | PCM.HP ---
H&P History of Present Illness - General Date of Service: 03/05/19 Admit Problem/Dx: Status post right total knee Source of Information: Patient - History of Present Illness Initial Comments - Free Text/Narative: Patient is a 78-year-old lady with chief complaint right knee pain status post right total knee patient has very limited range of motion denies pain while resting here for physical therapy. Onset of Symptoms: Reports: Gradual Duration of Symptoms: Reports: Day(s):, Improving Location: Reports: Lower Extremity, Right Quality: Reports: Ache, Throbbing Severity: Moderate Improves with: Reports: Cold Therapy, Medication Worsens with: Reports: Movement Context: Reports: Other (Surgery) Associated Symptoms: Reports: No Other Symptoms Right Knee Pain Score (Numeric/FACES): 3 - Related Data Allergies/Adverse Reactions: Allergies Allergy/AdvReac Type Severity Reaction Status Date / Time penicillin Allergy Other Verified 07/25/15 15:42 Home Medications: Home Meds Gabapentin 600 mg PO BID 07/25/15 [History] Gemfibrozil 600 mg PO BIDAC 07/25/15 [History] Lisinopril [Prinivil] 5 mg PO DAILY 07/25/15 [History] Simvastatin 40 mg PO BEDTIME 07/25/15 [History] Aspirin [Ecotrin] 325 mg PO BID 02/02/18 [History] Melatonin 6 mg PO BEDTIME PRN tablet 03/25/18 [Rx] Acetaminophen 1,000 mg PO Q6HR PRN 03/05/19 [History] Hydrocodone/Acetaminophen [Hydrocodon-Acetaminophen 5-325] 1 tab PO Q4HR PRN 09/13 [History] Omeprazole 2 cap PO DAILY 03/05/19 [History] Sennosides/Docusate Sodium [Senokot-S Tablet] 1 tab PO DAILY 03/05/19 [History] Past Medical History HEENT History: Reports: Cataract Cardiovascular History: Reports: High Cholesterol, Hypertension Gastrointestinal History: Reports: GI [employer] History: Reports: None Musculoskeletal History: Reports: Arthritis, Back Pain, Chronic, Neck Pain, Chronic, Osteoporosis Hematologic History: Reports: Blood Transfusion(s) Other Immunologic History: shingles - Infectious Disease History Infectious Disease History: Reports: Chicken Pox, Measles, Mumps, Shingles - Past Surgical History HEENT Surgical History: Reports: Cataract Surgery GI Surgical History: Reports: Appendectomy, Colonoscopy Female Surgical History: Reports: Breast Biopsy Neurological Surgical History: Reports: C-Spine, Laminectomy, Spinal Fusion Musculoskeletal Surgical History: Reports: Arthroscopic Knee, Hip Replacement, Joint Replacement, Knee Replacement, Shoulder Replacement, Shoulder Surgery Social & Family History - Family History HEENT: Reports: Cataract Cardiac: Reports: Hypertension, [place] Respiratory: Reports: Asthma GI: Reports: Bowel Obstruction Musculoskeletal: Reports: Arthritis, Back pain, Chronic, Gout, Osteoarthritis, Osteoporosis Neurological: Reports: TIA Oncologic: Reports: Breast, Ovarian - Tobacco Use Smoking Status *Q: Former Smoker Used Tobacco, but Quit: Yes Month/Year Tobacco Last Used: October 1959 Second Hand Smoke Exposure: No - Caffeine Use Caffeine Use: Reports: Coffee, Soda, Tea - Recreational Drug Use Recreational Drug Use: No - Living Situation & Occupation Living situation: Reports: Occupation: Retired H&P Review of Systems - Review of Systems: Review Of Systems: ROS reveals no pertinent complaints other than HPI. Exam - Exam Exam: See Below - Vital Signs Weight: 150 lb 1.6 oz - Exam General: Alert, Oriented, 4 HEENT: PERRLA, Hearing Intact, Mucosa Moist & [place], Nares Patent, Normal Nasal Septum, Posterior Pharynx Clear, Conjunctiva Clear, EOMI, EACs Clear, TMs Clear Neck: Supple, Trachea Midline, 2 Lungs: Clear to Auscultation, Normal Respiratory Effort Cardiovascular: Regular Rate, Regular Rhythm GI/Abdominal Exam: Normal Bowel Sounds, Soft, Non-Tender, No Organomegaly, No Distention, No Abnormal Bruit, No Mass, Pelvis Stable (Female) Exam: Deferred Rectal (Female) Exam: Deferred Back Exam: Normal Inspection, Full Range of Motion, NT Extremities: Normal Inspection, Leg Pain, Limited Range of Motion Skin: Warm, Dry, Intact Neurological: Cranial Nerves Intact, Reflexes Equal Bilateral Neuro Extensive - Mental Status: Alert, Oriented x3, Normal Mood/Affect, Normal Cognition Neuro Extensive - Motor, Sensory, Reflexes: CN II-XII Intact, Normal Gait, Normal Reflexes Psychiatric: Alert, Normal Affect, Normal Mood - Problem List (1) History of total right knee replacement SNOMED Code(s): 2463791945078, [id number], [id number], [id number] ICD Code: Z96.651 - PRESENCE OF RIGHT ARTIFICIAL KNEE JOINT Status: Acute Current Visit: Yes Problem Details: Patient is admitted to swing bed for physical therapy ambulation and strengthening Problem List Initiated/Reviewed/Updated: Yes Orders Last 24hrs: Active Orders 24 hr Category Date Time Status Communication Order [RC] DAILY Care 03/05/19 14:50 Active Communication Order [RC] DAILY Care 03/05/19 14:59 Active
[2019-03-05] MEDS ORDERED: Acetaminophen 500 MG Tab PO PRN (15:33)
[2019-03-05] MEDS: Omeprazole 20 MG Cap.CR PO SCH (17:07)
[2019-03-05] MEDS: Gemfibrozil 600 MG Tab PO SCH (17:08)
[2019-03-05] MEDS: Aspirin 325 MG Tab.EC PO SCH (17:09)
[2019-03-05] MEDS: Gabapentin 300 MG Cap PO SCH (17:09)
[2019-03-05] MEDS: Acetaminophen/HYDROcodone 325-5 MG Tab PO PRN (19:02)
[2019-03-05] MEDS: Simvastatin 20 MG Tab PO SCH (19:02)
[2019-03-05] MEDS: Melatonin 3 MG Tab PO PRN (22:47)
[2019-03-06] MEDS: Gemfibrozil 600 MG Tab PO SCH ×2 (07:33→17:29)
[2019-03-06] MEDS: Omeprazole 20 MG Cap.CR PO SCH (07:34)
[2019-03-06] MEDS: Aspirin 325 MG Tab.EC PO SCH ×2 (07:35→17:29)
[2019-03-06] MEDS: Gabapentin 300 MG Cap PO SCH ×2 (07:35→17:30)
[2019-03-06] MEDS: Acetaminophen/HYDROcodone 325-5 MG Tab PO PRN ×2 (07:36→17:31)
[2019-03-06] MEDS: Lisinopril 5 MG Tab PO SCH (07:38)
[2019-03-06] MEDS: Simvastatin 20 MG Tab PO SCH (19:36)
[2019-03-06] MEDS: Melatonin 3 MG Tab PO PRN (22:01)
[2019-03-07] MEDS: Acetaminophen/HYDROcodone 325-5 MG Tab PO PRN ×3 (02:14→22:28)
[2019-03-07] MEDS: Omeprazole 20 MG Cap.CR PO SCH (08:17)
[2019-03-07] MEDS: Gabapentin 300 MG Cap PO SCH ×2 (08:18→17:27)
[2019-03-07] MEDS: Gemfibrozil 600 MG Tab PO SCH ×2 (08:18→17:26)
[2019-03-07] MEDS: Lisinopril 5 MG Tab PO SCH (08:19)
[2019-03-07] MEDS: Aspirin 325 MG Tab.EC PO SCH ×2 (08:20→17:30)
[2019-03-07] MEDS: Simvastatin 20 MG Tab PO SCH (19:31)
[2019-03-07] MEDS: Melatonin 3 MG Tab PO PRN (22:21)
[2019-03-08] MEDS: Acetaminophen/HYDROcodone 325-5 MG Tab PO PRN ×2 (07:53→21:42)
[2019-03-08] MEDS: Gabapentin 300 MG Cap PO SCH ×2 (07:54→17:23)
[2019-03-08] MEDS: Omeprazole 20 MG Cap.CR PO SCH (07:58)
[2019-03-08] MEDS: Gemfibrozil 600 MG Tab PO SCH ×2 (07:58→17:20)
[2019-03-08] MEDS: Lisinopril 5 MG Tab PO SCH (07:59)
[2019-03-08] MEDS: Aspirin 325 MG Tab.EC PO SCH ×2 (07:59→17:22)
[2019-03-08] MEDS: Simvastatin 20 MG Tab PO SCH (19:09)
[2019-03-08] MEDS: Melatonin 3 MG Tab PO PRN (21:40)
[2019-03-09] MEDS: Acetaminophen/HYDROcodone 325-5 MG Tab PO PRN ×4 (02:44→22:23)
[2019-03-09] MEDS: Omeprazole 20 MG Cap.CR PO SCH (07:50)
[2019-03-09] MEDS: Gemfibrozil 600 MG Tab PO SCH ×2 (07:50→17:12)
[2019-03-09] MEDS: Gabapentin 300 MG Cap PO SCH ×2 (07:51→17:16)
[2019-03-09] MEDS: Aspirin 325 MG Tab.EC PO SCH ×2 (07:51→17:14)
[2019-03-09] MEDS: Lisinopril 5 MG Tab PO SCH (07:52)
[2019-03-09] MEDS: Simvastatin 20 MG Tab PO SCH (20:32)
[2019-03-09] MEDS: Melatonin 3 MG Tab PO PRN (22:22)
[2019-03-10] MEDS: Omeprazole 20 MG Cap.CR PO SCH (08:13)
[2019-03-10] MEDS: Gemfibrozil 600 MG Tab PO SCH (08:13)
[2019-03-10] MEDS: Aspirin 325 MG Tab.EC PO SCH (08:14)
[2019-03-10] MEDS: Lisinopril 5 MG Tab PO SCH (08:14)
[2019-03-10] MEDS: Gabapentin 300 MG Cap PO SCH (08:15)
[2019-03-10 08:16] VITALS: BP 133/63
--- NOTE | 2019-03-10 09:47 | PCM.DCSUM1 ---
Discharge Summary - Hospital Course Free Text/Narrative:: The patient was admitted with a Right TKA on 03-05-19. Patient was here for SNF care and PT/OT. Patient stay was uncomplicated. Patient is ready to go home with outpatient PT OT in [place] at [facility]. Diagnosis: Stroke: No - Discharge Data Discharge Date: 03/10/19 Discharge Disposition: Home, Self-Care 01 Condition: Good - Discharge Diagnosis/Problem(s) (1) History of total right knee replacement SNOMED Code(s): 2633097955733, [id number], [id number], [id number] ICD Code: Z96.651 - PRESENCE OF RIGHT ARTIFICIAL KNEE JOINT Status: Acute Current Visit: Yes Problem Details: Doing well; will DC today. - Patient Summary/Data Consults: Consultations 03/07/19 09:00 Consult to Physical Therapy [PT Evaluation and Treatment] [CONS] Routine 03/07/19 12:26 Consult to Occupational Therapy [OT Evaluation and Treatment] [CONS] Routine - Patient Instructions Diet: Usual Diet as Tolerated Activity: As Tolerated Driving: Do Not Drive Showering/Bathing: May Shower Wound/Incision Care: Keep Operative Site/Wound Site Clean and Dry Notify Provider of: Fever, Increased Pain, Swelling and Redness, Drainage Other/Special Instructions: Patient to have outpatient PT/OT for strengthening and ambulation at [facility] in [place]. - Discharge Plan *PRESCRIPTION DRUG MONITORING PROGRAM REVIEWED*: Not Applicable *COPY OF PRESCRIPTION DRUG MONITORING REPORT IN PATIENT [place]ENO: Not Applicable Home Medications: Home Meds Gabapentin 600 mg PO BID 07/25/15 [History] Gemfibrozil 600 mg PO BIDAC 07/25/15 [History] Lisinopril [Prinivil] 5 mg PO DAILY 07/25/15 [History] Simvastatin 40 mg PO BEDTIME 07/25/15 [History] Aspirin [Ecotrin] 325 mg PO BID 02/02/18 [History] Melatonin 6 mg PO BEDTIME PRN tablet 03/25/18 [Rx] Acetaminophen 1,000 mg PO Q6HR PRN 03/05/19 [History] Hydrocodone/Acetaminophen [Hydrocodon-Acetaminophen 5-325] 1 tab PO Q4HR PRN 09/13 [History] Omeprazole 2 cap PO DAILY 03/05/19 [History] Sennosides/Docusate Sodium [Senokot-S Tablet] 1 tab PO DAILY 03/05/19 [History] Referrals: PT/OT, Outpatient [Other] ([place] going [place] [facility] for strengthening and ambulation status post Right TKA. ) - Discharge Summary/Plan Comment DC Time >30 min.: No - General Info Date of Service: 03/10/19 - Review of Systems General: Reports: No Symptoms HEENT: Reports: No Symptoms Pulmonary: Reports: No Symptoms Cardiovascular: Reports: No Symptoms Gastrointestinal: Reports: No Symptoms Genitourinary: Reports: No Symptoms Musculoskeletal: Reports: Leg Pain (right knee pain intermittently ) Skin: Reports: No Symptoms Neurological: Reports: No Symptoms Psychiatric: Reports: No Symptoms - Patient Data Vitals - Most Recent: Last Vital Signs Temp 97.1 F 03/10/19 08:00 Pulse 80 03/10/19 08:00 Resp 18 03/10/19 08:00 BP 133/63 03/10/19 08:14 Pulse Ox 93 L 03/10/19 08:00 Weight - Most Recent: 150 lb 1.592 oz I&O - Last 24 hours: Intake & Output 03/09/19 03/10/19 03/10/19 22:59 06:59 14:59 Intake Total 480 Balance 480 Med Orders - Current: Current Medications Acetaminophen (Tylenol Extra Strength) 1,000 mg PO Q6HR PRN PRN Reason: Pain Last Admin: 03/07/19 17:31 Dose: 1,000 mg Hydrocodone Bitart/Acetaminophen ([place] 325-5 Mg) 1 tab PO Q4HR PRN PRN Reason: Pain Last Admin: 03/09/19 22:23 Dose: 1 tab Aspirin (Ecotrin) 325 mg PO BID [facility] Stop: 04/09/19 08:01 Last Admin: 03/10/19 08:14 Dose: 325 mg Gabapentin (Neurontin) 600 mg PO BID [facility] Last Admin: 03/10/19 08:15 Dose: 600 mg Gemfibrozil (Lopid) 600 mg PO BIDAC [facility] Last Admin: 03/10/19 08:13 Dose: 600 mg Lisinopril (Prinivil) 5 mg PO DAILY [facility] Last Admin: 03/10/19 08:14 Dose: 5 mg Melatonin (Melatonin) 6 mg PO BEDTIME PRN PRN Reason: Insomnia Last Admin: 03/09/19 22:22 Dose: 6 mg Omeprazole (Omeprazole) 40 mg PO ACBREAKFAST [facility] Last Admin: 03/10/19 08:13 Dose: 40 mg Senna/Docusate Sodium (Senna Plus) 1 tab PO DAILY [facility] Last Admin: 03/10/19 08:14 Dose: 1 tab Simvastatin (Zocor) 40 mg PO BEDTIME [facility] Last Admin: 03/09/19 20:32 Dose: 40 mg - Exam General: Reports: Alert, Oriented HEENT: Reports: Pupils Equal, Pupils Reactive, EOMI, Mucous Membr. Moist/[place] Neck: Reports: Supple Lungs: Reports: Clear to Auscultation Cardiovascular: Reports: Regular Rate, Regular Rhythm GI/Abdominal Exam: Normal Bowel Sounds, Soft, Non-Tender, No Organomegaly, No Distention, No Abnormal Bruit, No Mass, Pelvis Stable (Female) Exam: Deferred Rectal (Female) Exam: Deferred Back Exam: Reports: Normal Inspection, Full Range of Motion Extremities: Leg Pain (post surgical swelling right knee ) Skin: Reports: Warm, Dry, Intact Wound/Incisions: Reports: Healing Well, No Drainage, Other (Removed dressing, incision dry and intact- no redness. Open to Air now ) Neurological: Reports: No New Focal Deficit Psy/Mental Status: Reports: Alert, Normal Affect, Normal Mood
[2019-03-10] MEDS: Acetaminophen/HYDROcodone 325-5 MG Tab PO PRN (10:07)
== END 2019-03-10 11:56 | disposition home or self-care (01) | DRG 561 ==
LOC: LL.SWG 13:30
PROVIDERS: ADMIT Family Medicine; ATTEND Family Medicine
DX: Z47.1 Aftercare following joint replacement surgery (principal); Z96.651 Presence of right artificial knee joint; E78.00 Pure hypercholesterolemia, unspecified; I10 Essential (primary) hypertension; G89.29 Other chronic pain; M81.0 Age-related osteoporosis without current pathological fracture; M54.9 Dorsalgia, unspecified; M54.2 Cervicalgia; Z96.649 Presence of unspecified artificial hip joint; Z96.619 Presence of unspecified artificial shoulder joint; Z79.82 Long term (current) use of aspirin; Z88.0 Allergy status to penicillin; Z98.49 Cataract extraction status, unspecified eye; Z90.49 Acquired absence of other specified parts of digestive tract; Z87.891 Personal history of nicotine dependence
CPT/HCPCS: 97110-GP; 97116-GP; 97161-GP; 97165-GO; 97530-GO; 97530-GP; 97535-GO; A9270-GY